=== PATIENT | male | born 1950 | race Caucasian/White ===

== ENCOUNTER 2023-05-08 12:07 | Outpatient (CLI) | payer MEDICARE, SELFPAY ==
--- NOTE | 2023-05-08 | ECG_ITS ---
Measurements Intervals [place] Rate: 48 P: RI: 0 QRS: 39 QRSD: 104 T: 48 QT: 419 QTc: 377 Interpretive Statements SINUS BRADYCARDIA WITH 2:1 AV BLOCK WITH INTERMITTENT JUNCTIONAL BEAT FOLLOWED BY A NON-CONDUCTED P-WAVE NO PREVIOUS ECG AVAILABLE FOR COMPARISON Electronically Signed On 05-08-2023 14:12:13 CDT by Gregorio Jung M.D.
== END 2023-05-08 12:08 | disposition home or self-care (01) ==
PROVIDERS: PCP Internal Medicine; Visit Provider Internal Medicine
DX: I48.20 Chronic atrial fibrillation, unspecified (principal); R94.31 Abnormal electrocardiogram [ECG] [EKG]
CPT/HCPCS: 93005